=== PATIENT | male | born 1960 | race Two or more races ===

== ENCOUNTER 2021-02-04 22:14 | Inpatient (IN) | payer OTHER ==
[~2021-02-04] VITALS: Ht 170.2 cm; Wt 121.0 kg
[2021-02-04 23:16] LABS: Basophils # (auto) 0 10 ^3/uL (0-0.2); Basophils % (auto) 0.5 % (0.0-2.0); Eosinophils # (auto) 0 10 ^3/uL (0-0.8); Eosinophils % (auto) 0.1 % (0.0-7.0); Hematocrit 43.2 % (41.0-53.0); Hemoglobin 15.2 g/dL (13.5-17.5); Lymphocytes # (auto) 0.4 10 ^3/uL (0.4-5.4); Lymphocytes % (auto) 7.2 % (10.0-50.0); Mean Corpuscular Hemoglobin 31.3 pg (28.0-32.0); Mean Corpuscular Hgb Conc. 35.1 g/dL (32.0-36.0); Mean Corpuscular Volume 89.2 fL (80.0-100.0); Monocytes # (auto) 0.5 10 ^3/uL (0-1.3); Neutrophils # (auto) 4.6 10 ^3/uL (1.6-8.6); Neutrophils % (auto) 83.2 % (37.0-80.0); Nucleated Red Blood Cells % 0.1 %; Red Blood Cells 4.84 10^6/uL (4.5-5.90); Red Cell Distribution Width 13.8 % (11.8-14.3); White Blood Cell 5.5 10^3/uL (4.4-10.8)
[2021-02-04 23:34] LABS: Anion Gap 6 (5-15); Blood Urea Nitrogen 28 mg/dL (7-18); Calcium 8.1 mg/dL (8.5-10.1); Carbon Dioxide 22 mmol/L (21-32); Chloride 107 mmol/L (98-107); Glucose 98 mg/dL (74-106); Magnesium 2.9 mg/dL (1.6-2.6); Potassium 4.1 mmol/L (3.5-5.1); Sodium 135 mmol/L (136-145)
[2021-02-04 23:42] LABS: Alanine Aminotransferase 57 U/L (16-61); Alkaline Phosphatase 100 U/L (45-117); Aspartate Aminotransferase 75 U/L (15-37); BUN/Creatinine Ratio 23.1; Bilirubin, Total 0.8 mg/dL (0.2-1.0); CRP High Sensitivity 7.55 mg/dL (< 0.3); GFR African American 78 mL/min; GFR Non-African American 65 mL/min; Total Protein 7.6 g/dL (6.4-8.2)
[2021-02-05] VITALS (7 sets, daily range): BP systolic 94–108; BP diastolic 48–66
[2021-02-05] MEDS ORDERED: DexAMETHasone SOD PHOS 10MG/1ML VIAL INJ IV ONE (00:30)
[2021-02-05 01:50] LABS: Urine Amorphous Crystal FEW /hpf (None Seen); Urine Bacteria NONE SEEN /hpf (None Seen); Urine Blood Negative /uL (Negative); Urine Mucus FEW (None Seen); Urine Specific Gravity 1.024 (1.001-1.035); Urine WBC 4 /hpf (0 - 3)
[2021-02-05] MEDS ORDERED: NITROGLYCERIN 0.4 MG SL TAB SL PRN (03:30)
[2021-02-05] MEDS ORDERED: MORPHINE SULF INJ 2 MG/ML SYRINGE 1ML IV PRN (03:30)
[2021-02-05] MEDS ORDERED: ACETAMINOPHEN 500 MG TAB PO PRN (03:30)
[2021-02-05] MEDS ORDERED: ONDANSETRON HCL 4 MG/2 ML VIAL IV PRN (03:30)
[2021-02-05] MEDS ORDERED: DOCUSATE SOD 100 MG CAP PO PRN (03:30)
[2021-02-05] MEDS ORDERED: HYDROcodone-ACET 5/325MG TAB PO PRN (03:30)
[2021-02-05] MEDS: cefTRIAXone 1GM/50ML D5W 50 ML IV SCH (05:12)
[2021-02-05] MEDS ORDERED: guaiFENesin-DM 100/10mg/5ml SYR PO PRN (05:15)
[2021-02-05] MEDS: DOXYCYCLINE 100MG/250ML 250 ML IV SCH ×2 (05:40→21:11)
[2021-02-05] MEDS: SODIUM CHLOR 0.9% PF (SALINE LOCK) 10ML VIAL/SYR IV SCH ×3 (06:00→21:12)
[2021-02-05] MEDS: ALBUTEROL SULF HFA 90MCG INH 200DOSE IN PRN ×2 (09:12→20:55)
[2021-02-05] MEDS: BUDESONIDE (INHALATION) 180 MCG IH IN SCH ×2 (09:13→19:20)
[2021-02-05] MEDS ORDERED: HEPARIN SODIUM (PORCINE) 5000 UNITS/ML 1ML VIAL SC SCH (10:00)
[2021-02-05] MEDS: MULTIPLE VITAMIN TAB PO SCH (10:28)
[2021-02-05] MEDS: ASCORBIC ACID 1,000 MG TAB PO SCH (10:28)
[2021-02-05] MEDS: CHOLECALCIFEROL (VITD3) 2,000 UNIT CAP/TAB PO SCH (10:29)
[2021-02-05] MEDS: FAMOTIDINE (10MG/ML) 2ML VL IV SCH ×2 (10:29→21:12)
[2021-02-05] MEDS: ZINC SULFATE 220mg CAP or TAB PO SCH (10:29)
[2021-02-05] MEDS: DexAMETHasone SOD PHOS 10MG/1ML VIAL INJ IV SCH (10:35)
[2021-02-05] MEDS ORDERED: REMDESIVIR PER PHARMACY 0 ML IV SCH (10:45)
[2021-02-05] MEDS ORDERED: FUROSEMIDE 20 MG/2 ML VIAL IV ONE (11:00)
[2021-02-05] MEDS: IPRATROPIUM BROMIDE HFA AER IN SCH ×3 (11:21→23:02)
[2021-02-05] MEDS ORDERED: TOCILIZUMAB 400 MG in SODIUM CHL 0.9% 80 ML IV ONE (12:00)
[2021-02-05] MEDS ORDERED: IVERMECTIN 3 MG TAB PO ONE (13:30)
[2021-02-05] MEDS ORDERED: REMDESIVIR 200 MG in NS 210ml LOADING DOSE ADULT IV ONE (15:00)
[2021-02-05] MEDS: ENOXAPARIN SOD 60 MG/0.6 ML SYRINGE SC SCH (21:12)
[2021-02-06] VITALS (13 sets, daily range): BP systolic 90–112; BP diastolic 30–77
[2021-02-06] MEDS ORDERED: ALBUMIN 25% 100 ML IV ONE ×2 (01:40→01:45)
[2021-02-06] MEDS: IPRATROPIUM BROMIDE HFA AER IN SCH ×4 (06:00→22:00)
[2021-02-06] MEDS: ALBUTEROL SULF HFA 90MCG INH 200DOSE IN PRN ×2 (06:00→19:18)
[2021-02-06] MEDS: BUDESONIDE (INHALATION) 180 MCG IH IN SCH ×2 (06:01→19:17)
[2021-02-06] MEDS ORDERED: IVERMECTIN 3 MG TAB PO ONE (07:00)
[2021-02-06] MEDS ORDERED: TOCILIZUMAB 400 MG in SODIUM CHL 0.9% 80 ML IV ONE (08:00)
[2021-02-06] MEDS: cefTRIAXone 1GM/50ML D5W 50 ML IV SCH (08:28)
[2021-02-06] MEDS: FAMOTIDINE (10MG/ML) 2ML VL IV SCH ×2 (09:13→22:06)
[2021-02-06] MEDS: DexAMETHasone SOD PHOS 10MG/1ML VIAL INJ IV SCH (09:14)
[2021-02-06] MEDS: ASCORBIC ACID 1,000 MG TAB PO SCH (09:15)
[2021-02-06] MEDS: ENOXAPARIN SOD 60 MG/0.6 ML SYRINGE SC SCH ×2 (09:15→22:06)
[2021-02-06] MEDS: CHOLECALCIFEROL (VITD3) 2,000 UNIT CAP/TAB PO SCH (09:15)
[2021-02-06] MEDS: ZINC SULFATE 220mg CAP or TAB PO SCH (09:16)
[2021-02-06] MEDS: MULTIPLE VITAMIN TAB PO SCH (09:16)
[2021-02-06] MEDS: SODIUM CHLOR 0.9% PF (SALINE LOCK) 10ML VIAL/SYR IV SCH ×3 (09:16→22:06)
[2021-02-06] MEDS: DOXYCYCLINE 100MG/250ML 250 ML IV SCH ×2 (09:18→22:06)
[2021-02-06] MEDS: IVERMECTIN 3 MG TAB PO SCH (09:33)
[2021-02-06] MEDS ORDERED: FUROSEMIDE 20 MG/2 ML VIAL IV SCH (10:00)
[2021-02-06 10:15] LABS: Basophils # (auto) 0 10 ^3/uL (0-0.2); Basophils % (auto) 0.4 % (0.0-2.0); Eosinophils # (auto) 0 10 ^3/uL (0-0.8); Hematocrit 44.6 % (41.0-53.0); Hemoglobin 15.5 g/dL (13.5-17.5); Lymphocytes # (auto) 0.6 10 ^3/uL (0.4-5.4); Lymphocytes % (auto) 10.5 % (10.0-50.0); Mean Corpuscular Hemoglobin 31.3 pg (28.0-32.0); Mean Corpuscular Hgb Conc. 34.9 g/dL (32.0-36.0); Mean Corpuscular Volume 89.8 fL (80.0-100.0); Monocytes # (auto) 0.5 10 ^3/uL (0-1.3); Monocytes % (auto) 9.9 % (0.0-12.0); Neutrophils # (auto) 4.3 10 ^3/uL (1.6-8.6); Neutrophils % (auto) 79.2 % (37.0-80.0); Red Blood Cells 4.96 10^6/uL (4.5-5.90); Red Cell Distribution Width 13.9 % (11.8-14.3); White Blood Cell 5.4 10^3/uL (4.4-10.8)
[2021-02-06 10:33] LABS: Albumin 3.1 g/dL (3.4-5.0); Calcium 8.8 mg/dL (8.5-10.1)
[2021-02-06 10:38] LABS: Bilirubin, Total 0.8 mg/dL (0.2-1.0); Total Protein 7.7 g/dL (6.4-8.2)
[2021-02-06 11:30] LABS: BUN/Creatinine Ratio 30.2
[2021-02-06] MEDS: REMDESIVIR 100mg 100 MG in SODIUM CHL 0.9% 230 ML IV SCH (15:45)
[2021-02-07] VITALS (11 sets, daily range): BP systolic 103–175; BP diastolic 50–78
[2021-02-07] MEDS: ALBUTEROL SULF HFA 90MCG INH 200DOSE IN PRN ×2 (06:00→19:11)
[2021-02-07] MEDS: IPRATROPIUM BROMIDE HFA AER IN SCH ×4 (06:00→22:00)
[2021-02-07] MEDS: SODIUM CHLOR 0.9% PF (SALINE LOCK) 10ML VIAL/SYR IV SCH ×3 (06:55→22:29)
[2021-02-07] MEDS: cefTRIAXone 1GM/50ML D5W 50 ML IV SCH (09:25)
[2021-02-07] MEDS: IVERMECTIN 3 MG TAB PO SCH (10:00)
[2021-02-07] MEDS: BUDESONIDE (INHALATION) 180 MCG IH IN SCH ×2 (10:00→19:11)
[2021-02-07] MEDS: DOCUSATE SOD 100 MG CAP PO SCH ×2 (10:00→20:29)
[2021-02-07] MEDS: DexAMETHasone SOD PHOS 10MG/1ML VIAL INJ IV SCH (10:26)
[2021-02-07] MEDS: CHOLECALCIFEROL (VITD3) 2,000 UNIT CAP/TAB PO SCH (10:26)
[2021-02-07] MEDS: ASCORBIC ACID 1,000 MG TAB PO SCH (10:26)
[2021-02-07] MEDS: FAMOTIDINE (10MG/ML) 2ML VL IV SCH ×2 (10:26→22:29)
[2021-02-07] MEDS: MULTIPLE VITAMIN TAB PO SCH (10:27)
[2021-02-07] MEDS: ZINC SULFATE 220mg CAP or TAB PO SCH (10:28)
[2021-02-07] MEDS: ENOXAPARIN SOD 60 MG/0.6 ML SYRINGE SC SCH ×2 (10:29→22:30)
[2021-02-07] MEDS: FUROSEMIDE 40 MG/4 ML VIAL IV SCH (10:29)
[2021-02-07] MEDS: DOXYCYCLINE 100MG/250ML 250 ML IV SCH ×2 (10:29→22:29)
[2021-02-07] MEDS: REMDESIVIR 100mg 100 MG in SODIUM CHL 0.9% 230 ML IV SCH (15:06)
[2021-02-08] VITALS (14 sets, daily range): BP systolic 92–149; BP diastolic 62–78
[2021-02-08] MEDS: BUDESONIDE (INHALATION) 180 MCG IH IN SCH (05:59)
[2021-02-08] MEDS: IPRATROPIUM BROMIDE HFA AER IN SCH (05:59)
[2021-02-08] MEDS: ALBUTEROL SULF HFA 90MCG INH 200DOSE IN PRN (05:59)
[2021-02-08] MEDS: SODIUM CHLOR 0.9% PF (SALINE LOCK) 10ML VIAL/SYR IV SCH ×3 (06:00→21:28)
[2021-02-08 06:21] LABS: Potassium 3.9 mmol/L (3.5-5.1)
[2021-02-08 06:30] LABS: BUN/Creatinine Ratio 28.2; Calcium 8.5 mg/dL (8.5-10.1)
[2021-02-08 06:32] LABS: Bilirubin, Total 1.1 mg/dL (0.2-1.0); Total Protein 7.4 g/dL (6.4-8.2)
[2021-02-08] MEDS: cefTRIAXone 1GM/50ML D5W 50 ML IV SCH (09:08)
[2021-02-08] MEDS: ASCORBIC ACID 1,000 MG TAB PO SCH (10:00)
[2021-02-08] MEDS: DOCUSATE SOD 100 MG CAP PO SCH ×2 (10:00→21:28)
[2021-02-08] MEDS: CHOLECALCIFEROL (VITD3) 2,000 UNIT CAP/TAB PO SCH (10:00)
[2021-02-08] MEDS: DOXYCYCLINE 100MG/250ML 250 ML IV SCH ×2 (10:00→21:28)
[2021-02-08] MEDS: MULTIPLE VITAMIN TAB PO SCH (11:07)
[2021-02-08] MEDS: FAMOTIDINE (10MG/ML) 2ML VL IV SCH ×2 (11:08→21:29)
[2021-02-08] MEDS: DexAMETHasone SOD PHOS 10MG/1ML VIAL INJ IV SCH (11:08)
[2021-02-08] MEDS: ZINC SULFATE 220mg CAP or TAB PO SCH (11:08)
[2021-02-08] MEDS: IVERMECTIN 3 MG TAB PO SCH (11:08)
[2021-02-08] MEDS: ENOXAPARIN SOD 60 MG/0.6 ML SYRINGE SC SCH ×2 (11:08→21:28)
[2021-02-08] MEDS: FUROSEMIDE 40 MG/4 ML VIAL IV SCH (11:09)
[2021-02-08] MEDS: ACETYLCYSTEINE 10 %(100MG/ML) SOL 4ML NEB SCH ×2 (12:30→19:31)
[2021-02-08] MEDS: REMDESIVIR 100mg 100 MG in SODIUM CHL 0.9% 230 ML IV SCH (15:00)
[2021-02-08] MEDS: IPRATROPIUM BROM 0.5 MG/2.5ML INH SOL NEB SCH (19:31)
[2021-02-08] MEDS: ALBUTEROL SULF 2.5 MG/0.5ML(0.5%) NEB SOLN NEB SCH (19:31)
[2021-02-09] VITALS (15 sets, daily range): BP systolic 92–151; BP diastolic 56–82
[2021-02-09] MEDS: ACETYLCYSTEINE 10 %(100MG/ML) SOL 4ML NEB SCH ×4 (00:41→18:33)
[2021-02-09] MEDS: IPRATROPIUM BROM 0.5 MG/2.5ML INH SOL NEB SCH ×4 (00:41→18:33)
[2021-02-09] MEDS: ALBUTEROL SULF 2.5 MG/0.5ML(0.5%) NEB SOLN NEB SCH ×4 (00:41→18:33)
[2021-02-09 05:29] LABS: Basophils # (auto) 0.1 10 ^3/uL (0-0.2); Basophils % (auto) 0.7 % (0.0-2.0); Eosinophils # (auto) 0 10 ^3/uL (0-0.8); Eosinophils % (auto) 0.1 % (0.0-7.0); Hematocrit 49.7 % (41.0-53.0); Lymphocytes # (auto) 0.9 10 ^3/uL (0.4-5.4); Lymphocytes % (auto) 8.6 % (10.0-50.0); Mean Corpuscular Hemoglobin 31.3 pg (28.0-32.0); Mean Corpuscular Hgb Conc. 34.2 g/dL (32.0-36.0); Mean Corpuscular Volume 91.5 fL (80.0-100.0); Monocytes # (auto) 0.6 10 ^3/uL (0-1.3); Monocytes % (auto) 5.2 % (0.0-12.0); Neutrophils # (auto) 9.1 10 ^3/uL (1.6-8.6); Neutrophils % (auto) 85.4 % (37.0-80.0); Nucleated Red Blood Cells % 0.1 %; Red Blood Cells 5.43 10^6/uL (4.5-5.90); Red Cell Distribution Width 14.1 % (11.8-14.3); White Blood Cell 10.6 10^3/uL (4.4-10.8)
[2021-02-09 05:41] LABS: Albumin 3.3 g/dL (3.4-5.0)
[2021-02-09 05:51] LABS: BUN/Creatinine Ratio 29.1; Bilirubin, Total 1.4 mg/dL (0.2-1.0); CRP High Sensitivity 1.03 mg/dL (< 0.3); Total Protein 7.8 g/dL (6.4-8.2)
[2021-02-09] MEDS: SODIUM CHLOR 0.9% PF (SALINE LOCK) 10ML VIAL/SYR IV SCH ×3 (06:00→19:53)
[2021-02-09] MEDS: cefTRIAXone 1GM/50ML D5W 50 ML IV SCH (09:51)
[2021-02-09] MEDS: FUROSEMIDE 40 MG/4 ML VIAL IV SCH (09:52)
[2021-02-09] MEDS: ENOXAPARIN SOD 60 MG/0.6 ML SYRINGE SC SCH ×2 (09:52→19:53)
[2021-02-09] MEDS: DexAMETHasone SOD PHOS 10MG/1ML VIAL INJ IV SCH (09:52)
[2021-02-09] MEDS: MULTIPLE VITAMIN TAB PO SCH (09:53)
[2021-02-09] MEDS: ASCORBIC ACID 1,000 MG TAB PO SCH (09:54)
[2021-02-09] MEDS: DOCUSATE SOD 100 MG CAP PO SCH ×2 (09:54→19:53)
[2021-02-09] MEDS: ZINC SULFATE 220mg CAP or TAB PO SCH (09:54)
[2021-02-09] MEDS: IVERMECTIN 3 MG TAB PO SCH (09:55)
[2021-02-09] MEDS: CHOLECALCIFEROL (VITD3) 2,000 UNIT CAP/TAB PO SCH (09:55)
[2021-02-09] MEDS: FAMOTIDINE (10MG/ML) 2ML VL IV SCH ×2 (09:56→19:53)
[2021-02-09] MEDS: DOXYCYCLINE 100MG/250ML 250 ML IV SCH ×2 (09:57→21:45)
[2021-02-09] MEDS: REMDESIVIR 100mg 100 MG in SODIUM CHL 0.9% 230 ML IV SCH (14:43)
[2021-02-09] MEDS ORDERED: LORazepam 2MG/ML-1ML VIAL IV PRN (15:15)
[2021-02-10] VITALS (19 sets, daily range): BP systolic 117–152; BP diastolic 67–83
[2021-02-10] MEDS: ALBUTEROL SULF 2.5 MG/0.5ML(0.5%) NEB SOLN NEB SCH ×4 (00:09→18:19)
[2021-02-10] MEDS: IPRATROPIUM BROM 0.5 MG/2.5ML INH SOL NEB SCH ×4 (00:09→18:19)
[2021-02-10] MEDS: ACETYLCYSTEINE 10 %(100MG/ML) SOL 4ML NEB SCH ×4 (00:10→18:19)
[2021-02-10 06:09] LABS: Basophils # (auto) 0 10 ^3/uL (0-0.2); Basophils % (auto) 0.2 % (0.0-2.0); Eosinophils # (auto) 0 10 ^3/uL (0-0.8); Eosinophils % (auto) 0.3 % (0.0-7.0); Hematocrit 50.2 % (41.0-53.0); Hemoglobin 17.3 g/dL (13.5-17.5); Lymphocytes # (auto) 0.7 10 ^3/uL (0.4-5.4); Lymphocytes % (auto) 4.8 % (10.0-50.0); Mean Corpuscular Hemoglobin 31.4 pg (28.0-32.0); Mean Corpuscular Hgb Conc. 34.4 g/dL (32.0-36.0); Mean Corpuscular Volume 91.5 fL (80.0-100.0); Monocytes # (auto) 0.7 10 ^3/uL (0-1.3); Monocytes % (auto) 4.6 % (0.0-12.0); Neutrophils # (auto) 13.5 10 ^3/uL (1.6-8.6); Neutrophils % (auto) 90.1 % (37.0-80.0); Nucleated Red Blood Cells % 0.1 %; Red Blood Cells 5.49 10^6/uL (4.5-5.90)
[2021-02-10 06:17] LABS: Potassium 3.9 mmol/L (3.5-5.1)
[2021-02-10] MEDS: SODIUM CHLOR 0.9% PF (SALINE LOCK) 10ML VIAL/SYR IV SCH ×3 (06:21→20:20)
[2021-02-10 06:22] LABS: BUN/Creatinine Ratio 29.6; Calcium 9.1 mg/dL (8.5-10.1)
[2021-02-10] MEDS: cefTRIAXone 1GM/50ML D5W 50 ML IV SCH (10:03)
[2021-02-10] MEDS: ENOXAPARIN SOD 60 MG/0.6 ML SYRINGE SC SCH (10:04)
[2021-02-10] MEDS: FAMOTIDINE (10MG/ML) 2ML VL IV SCH ×2 (10:04→20:20)
[2021-02-10] MEDS: FUROSEMIDE 40 MG/4 ML VIAL IV SCH (10:06)
[2021-02-10] MEDS: DOCUSATE SOD 100 MG CAP PO SCH ×2 (10:06→20:20)
[2021-02-10] MEDS: ZINC SULFATE 220mg CAP or TAB PO SCH (10:07)
[2021-02-10] MEDS: MULTIPLE VITAMIN TAB PO SCH (10:07)
[2021-02-10] MEDS: ASCORBIC ACID 1,000 MG TAB PO SCH (10:07)
[2021-02-10] MEDS: CHOLECALCIFEROL (VITD3) 2,000 UNIT CAP/TAB PO SCH (10:08)
[2021-02-10] MEDS: DexAMETHasone SOD PHOS 10MG/1ML VIAL INJ IV SCH (10:09)
[2021-02-10 12:17] LABS: INR 1.12 (0.9-1.15); Partial Thromboplastin Time 29.1 sec (23.6-33.0)
[2021-02-10] MEDS ORDERED: MORPHINE SULF INJ 2 MG/ML SYRINGE 1ML IV ONE (12:30)
[2021-02-10] MEDS: Ensure HIGH Protein Chocolate 8oz Bottle PO SCH ×2 (12:46→18:00)
[2021-02-10] MEDS ORDERED: LIDOCAINE 1% (LOCAL ANESTH.) PF 5ml SDV ID ONE (15:00)
[2021-02-10] MEDS ORDERED: MORPHINE SULF INJ 2 MG/ML SYRINGE 1ML IV PRN (17:45)
[2021-02-10] MEDS ORDERED: CLINIMIX PER PHARMACY 0 ML IV SCH (19:15)
[2021-02-10] MEDS ORDERED: AMINO ACID INFUSION IN D10W 1,000 ML IV NR (20:00)
[2021-02-10] MEDS: ENOXAPARIN SOD 40 MG/0.4 ML SYRINGE SC SCH (20:20)
[2021-02-10 20:56] LABS: Albumin 3.3 g/dL (3.4-5.0); Calcium 8.9 mg/dL (8.5-10.1); Potassium 4.2 mmol/L (3.5-5.1)
[2021-02-10 20:59] LABS: Phosphorus 3.7 mg/dL (2.5-4.90); Total Protein 7.6 g/dL (6.4-8.2)
[2021-02-11] VITALS (36 sets, daily range): BP systolic 115–147; BP diastolic 55–86
[2021-02-11] MEDS ORDERED: DEXTROSE (50%) 50ML SYRG IV SCH
[2021-02-11] MEDS: ALBUTEROL SULF 2.5 MG/0.5ML(0.5%) NEB SOLN NEB SCH ×5 (00:11→18:14)
[2021-02-11] MEDS: IPRATROPIUM BROM 0.5 MG/2.5ML INH SOL NEB SCH ×5 (00:11→18:14)
[2021-02-11] MEDS: ACETYLCYSTEINE 10 %(100MG/ML) SOL 4ML NEB SCH ×5 (00:12→18:21)
[2021-02-11] MEDS: InsuLIN REG 1unit/0.01ml Soln (100units/ml) SC SCH ×4 (06:00→18:00)
[2021-02-11 06:02] LABS: Basophils # (auto) 0.1 10 ^3/uL (0-0.2); Basophils % (auto) 0.4 % (0.0-2.0); Eosinophils # (auto) 0.2 10 ^3/uL (0-0.8); Eosinophils % (auto) 1.1 % (0.0-7.0); Hematocrit 50.2 % (41.0-53.0); Hemoglobin 17.2 g/dL (13.5-17.5); Lymphocytes # (auto) 0.5 10 ^3/uL (0.4-5.4); Lymphocytes % (auto) 3.2 % (10.0-50.0); Mean Corpuscular Hemoglobin 31.5 pg (28.0-32.0); Mean Corpuscular Hgb Conc. 34.2 g/dL (32.0-36.0); Mean Corpuscular Volume 92.1 fL (80.0-100.0); Monocytes # (auto) 0.6 10 ^3/uL (0-1.3); Monocytes % (auto) 3.8 % (0.0-12.0); Neutrophils # (auto) 13.6 10 ^3/uL (1.6-8.6); Neutrophils % (auto) 91.5 % (37.0-80.0); Nucleated Red Blood Cells % 0.1 %; Red Blood Cells 5.45 10^6/uL (4.5-5.90); Red Cell Distribution Width 14.1 % (11.8-14.3); White Blood Cell 14.9 10^3/uL (4.4-10.8)
[2021-02-11] MEDS: ACCU-CHEK COMFORT CURVE STRIP VI SCH ×4 (06:21→18:20)
[2021-02-11] MEDS: SODIUM CHLOR 0.9% PF (SALINE LOCK) 10ML VIAL/SYR IV SCH ×3 (06:21→20:39)
[2021-02-11 06:26] LABS: Potassium 4.1 mmol/L (3.5-5.1)
[2021-02-11 06:38] LABS: Albumin 3.1 g/dL (3.4-5.0); BUN/Creatinine Ratio 32.7; Bilirubin, Total 1.1 mg/dL (0.2-1.0); Calcium 9.2 mg/dL (8.5-10.1); Phosphorus 3.4 mg/dL (2.5-4.90); Pre Albumin 30.1 mg/dL (20.0-40.0); Total Protein 7.6 g/dL (6.4-8.2)
[2021-02-11] MEDS: Ensure HIGH Protein Chocolate 8oz Bottle PO SCH ×3 (08:00→18:45)
[2021-02-11] MEDS ORDERED: MULTIPLE VITAMIN TAB PO SCH (10:00)
[2021-02-11] MEDS: cefTRIAXone 1GM/50ML D5W 50 ML IV SCH (10:07)
[2021-02-11] MEDS: DexAMETHasone SOD PHOS 10MG/1ML VIAL INJ IV SCH (10:37)
[2021-02-11] MEDS: DOCUSATE SOD 100 MG CAP PO SCH ×2 (10:38→20:41)
[2021-02-11] MEDS: CHOLECALCIFEROL (VITD3) 2,000 UNIT CAP/TAB PO SCH (10:38)
[2021-02-11] MEDS: ASCORBIC ACID 1,000 MG TAB PO SCH (10:38)
[2021-02-11] MEDS: FUROSEMIDE 40 MG/4 ML VIAL IV SCH (10:39)
[2021-02-11] MEDS: ENOXAPARIN SOD 40 MG/0.4 ML SYRINGE SC SCH ×2 (10:39→20:39)
[2021-02-11] MEDS: FAMOTIDINE (10MG/ML) 2ML VL IV SCH ×2 (10:39→20:39)
[2021-02-11] MEDS: ZINC SULFATE 220mg CAP or TAB PO SCH (10:40)
[2021-02-11] MEDS ORDERED: PPN PER PHARMACY 500 ML IV SCH (11:00)
[2021-02-11] MEDS ORDERED: TPN PER PHARMACY 0 ML IV SCH ×2 (12:45→19:15)
[2021-02-11] MEDS ORDERED: METOPROLOL TARTRATE 1MG/1ML-5ML VIAL IV ONE ×2 (18:30→18:34)
[2021-02-11] MEDS ORDERED: PPN PER PHARMACY IV NR ×8 (20:00)
[2021-02-12] VITALS (34 sets, daily range): BP systolic 109–138; BP diastolic 64–88
[2021-02-12] MEDS: ALBUTEROL SULF 2.5 MG/0.5ML(0.5%) NEB SOLN NEB SCH ×4 (00:52→18:29)
[2021-02-12] MEDS: IPRATROPIUM BROM 0.5 MG/2.5ML INH SOL NEB SCH ×4 (00:52→18:28)
[2021-02-12] MEDS: ACETYLCYSTEINE 10 %(100MG/ML) SOL 4ML NEB SCH ×4 (00:53→18:29)
[2021-02-12] MEDS: SODIUM CHLOR 0.9% PF (SALINE LOCK) 10ML VIAL/SYR IV SCH ×3 (06:00→22:14)
[2021-02-12] MEDS: ACCU-CHEK COMFORT CURVE STRIP VI SCH ×4 (06:13→18:05)
[2021-02-12] MEDS: InsuLIN REG 1unit/0.01ml Soln (100units/ml) SC SCH ×4 (06:20→18:38)
[2021-02-12 06:39] LABS: Basophils # (auto) 0.1 10 ^3/uL (0-0.2); Eosinophils # (auto) 0.3 10 ^3/uL (0-0.8); Lymphocytes # (auto) 0.5 10 ^3/uL (0.4-5.4); Monocytes # (auto) 0.5 10 ^3/uL (0-1.3)
[2021-02-12 06:47] LABS: Basophils % (auto) 0.5 % (0.0-2.0); Eosinophils % (auto) 1.8 % (0.0-7.0); Hemoglobin 17.7 g/dL (13.5-17.5); Lymphocytes % (auto) 2.6 % (10.0-50.0); Mean Corpuscular Hemoglobin 30.7 pg (28.0-32.0); Mean Corpuscular Hgb Conc. 33.4 g/dL (32.0-36.0); Monocytes % (auto) 2.7 % (0.0-12.0); Neutrophils # (auto) 16.6 10 ^3/uL (1.6-8.6); Neutrophils % (auto) 92.4 % (37.0-80.0); Red Blood Cells 5.76 10^6/uL (4.5-5.90); Red Cell Distribution Width 14.3 % (11.8-14.3)
[2021-02-12 06:56] LABS: Potassium 4.1 mmol/L (3.5-5.1)
[2021-02-12 07:04] LABS: Albumin 3.1 g/dL (3.4-5.0); BUN/Creatinine Ratio 34.6; Calcium 8.6 mg/dL (8.5-10.1); Magnesium 2.8 mg/dL (1.6-2.6)
[2021-02-12 07:06] LABS: Bilirubin, Total 0.8 mg/dL (0.2-1.0); Phosphorus 3.6 mg/dL (2.5-4.90); Total Protein 7.1 g/dL (6.4-8.2)
[2021-02-12] MEDS: Ensure HIGH Protein Chocolate 8oz Bottle PO SCH ×3 (08:00→18:00)
[2021-02-12] MEDS: cefTRIAXone 1GM/50ML D5W 50 ML IV SCH (09:31)
[2021-02-12] MEDS: DexAMETHasone SOD PHOS 10MG/1ML VIAL INJ IV SCH (09:31)
[2021-02-12] MEDS: FAMOTIDINE (10MG/ML) 2ML VL IV SCH ×2 (09:31→22:14)
[2021-02-12] MEDS: FUROSEMIDE 40 MG/4 ML VIAL IV SCH (09:32)
[2021-02-12] MEDS: ZINC SULFATE 220mg CAP or TAB PO SCH ×2 (09:32→10:00)
[2021-02-12] MEDS: ASCORBIC ACID 1,000 MG TAB PO SCH ×2 (09:32→10:00)
[2021-02-12] MEDS: DOCUSATE SOD 100 MG CAP PO SCH ×3 (09:33→22:00)
[2021-02-12] MEDS: ENOXAPARIN SOD 40 MG/0.4 ML SYRINGE SC SCH ×2 (09:33→22:15)
[2021-02-12] MEDS: CHOLECALCIFEROL (VITD3) 2,000 UNIT CAP/TAB PO SCH ×2 (09:33→10:00)
[2021-02-12] MEDS ORDERED: PIPERACILLIN-TAZOB 3.375GM 100 ML IV ONE (10:15)
[2021-02-12] MEDS: PIPERACILLIN-TAZOB 3.375GM 100 ML IV SCH (18:20)
[2021-02-12] MEDS ORDERED: TPN PER PHARMACY IV NR ×10 (20:00)
[2021-02-13] VITALS (55 sets, daily range): BP systolic 56–222; BP diastolic 22–210
[2021-02-13] MEDS: ACETYLCYSTEINE 10 %(100MG/ML) SOL 4ML NEB SCH ×4 (00:27→22:35)
[2021-02-13] MEDS: IPRATROPIUM BROM 0.5 MG/2.5ML INH SOL NEB SCH ×4 (00:27→22:35)
[2021-02-13] MEDS: ALBUTEROL SULF 2.5 MG/0.5ML(0.5%) NEB SOLN NEB SCH ×4 (00:27→22:34)
[2021-02-13] MEDS: ACCU-CHEK COMFORT CURVE STRIP VI SCH ×4 (00:59→18:58)
[2021-02-13] MEDS: PIPERACILLIN-TAZOB 3.375GM 100 ML IV SCH ×3 (02:00→19:05)
[2021-02-13] MEDS: InsuLIN REG 1unit/0.01ml Soln (100units/ml) SC SCH ×4 (06:00→19:05)
[2021-02-13 06:12] LABS: Basophils # (auto) 0.1 10 ^3/uL (0-0.2); Eosinophils # (auto) 0.4 10 ^3/uL (0-0.8); Eosinophils % (auto) 2.2 % (0.0-7.0)
[2021-02-13 06:16] LABS: Basophils % (auto) 0.4 % (0.0-2.0); Hematocrit 55.6 % (41.0-53.0); Hemoglobin 18.7 g/dL (13.5-17.5); Lymphocytes # (auto) 0.3 10 ^3/uL (0.4-5.4); Lymphocytes % (auto) 2.1 % (10.0-50.0); Mean Corpuscular Hemoglobin 30.9 pg (28.0-32.0); Mean Corpuscular Hgb Conc. 33.5 g/dL (32.0-36.0); Monocytes # (auto) 0.4 10 ^3/uL (0-1.3); Monocytes % (auto) 2.2 % (0.0-12.0); Neutrophils # (auto) 15.8 10 ^3/uL (1.6-8.6); Neutrophils % (auto) 93.1 % (37.0-80.0); Nucleated Red Blood Cells % 0.1 %; Red Blood Cells 6.04 10^6/uL (4.5-5.90); Red Cell Distribution Width 14.3 % (11.8-14.3)
[2021-02-13 06:39] LABS: Albumin 3.3 g/dL (3.4-5.0); Calcium 9.2 mg/dL (8.5-10.1); Magnesium 3.2 mg/dL (1.6-2.6); Potassium 3.6 mmol/L (3.5-5.1)
[2021-02-13] MEDS: SODIUM CHLOR 0.9% PF (SALINE LOCK) 10ML VIAL/SYR IV SCH ×3 (06:39→23:21)
[2021-02-13 06:43] LABS: BUN/Creatinine Ratio 30.2; Bilirubin, Total 1.1 mg/dL (0.2-1.0); Phosphorus 3.5 mg/dL (2.5-4.90); Total Protein 7.9 g/dL (6.4-8.2)
[2021-02-13] MEDS: Ensure HIGH Protein Chocolate 8oz Bottle PO SCH ×3 (08:00→18:00)
[2021-02-13] MEDS ORDERED: ROCURONIUM 10MG/ML 10ML VIAL IV ONE (11:00)
[2021-02-13] MEDS ORDERED: PROPOFOL 100 ML IV SCH (11:00)
[2021-02-13] MEDS ORDERED: ETOMIDATE (2MG/ML) 20ML VIAL IV ONE (11:00)
[2021-02-13] MEDS: ZINC SULFATE 220mg CAP or TAB PO SCH (11:17)
[2021-02-13] MEDS: FAMOTIDINE (10MG/ML) 2ML VL IV SCH ×2 (11:17→23:21)
[2021-02-13] MEDS: FUROSEMIDE 40 MG/4 ML VIAL IV SCH (11:18)
[2021-02-13] MEDS: ENOXAPARIN SOD 40 MG/0.4 ML SYRINGE SC SCH ×2 (11:18→23:22)
[2021-02-13] MEDS: CHOLECALCIFEROL (VITD3) 2,000 UNIT CAP/TAB PO SCH (11:18)
[2021-02-13] MEDS: ASCORBIC ACID 1,000 MG TAB PO SCH (11:18)
[2021-02-13] MEDS: DOCUSATE SOD 100 MG CAP PO SCH ×2 (11:19→22:00)
[2021-02-13] MEDS: DexAMETHasone SOD PHOS 10MG/1ML VIAL INJ IV SCH (11:20)
[2021-02-13] MEDS ORDERED: fentaNYL Drip 2500mCg/250mlNS 250 ML IV ONE (12:44)
[2021-02-13] MEDS ORDERED: MIDAZOLAM DRIP 50 mg/50mL 50 ML IV ONE (12:45)
[2021-02-13] MEDS: fentaNYL Drip 2500mCg/250mlNS 250 ML IV SCH (12:50)
[2021-02-13] MEDS: MIDAZOLAM DRIP 50 mg/50mL 50 ML IV SCH ×2 (12:55→21:54)
[2021-02-13] MEDS ORDERED: PROPOFOL 100 ML IV ONE (12:58)
[2021-02-13] MEDS ORDERED: ATRACURIUM BESYLATE 1,000 MG in D5W 5% 150 ML IV SCH (13:15)
[2021-02-13] MEDS ORDERED: PHENYLEPHRINE IV 250 ML IV ONE ×3 (14:22→19:56)
[2021-02-13] MEDS ORDERED: VANCOMYCIN 1GM/250ML 250 ML IV ONE (14:45)
[2021-02-13] MEDS ORDERED: ACETAMINOPHEN 650 MG RECT SUPP PR PRN ×2 (17:45→19:45)
[2021-02-13] MEDS ORDERED: ACETAMINOPHEN IV 1000 MG/100ML (10MG/ML) IV ONE (17:45)
[2021-02-13] MEDS ORDERED: NOREPINEPHRINE 8 MG/250ML KIT 250 ML IV ONE (17:53)
[2021-02-13] MEDS: VASOPRESSIN 50 UNITS in D5W 5% 247.5 ML IV SCH (18:00)
[2021-02-13] MEDS ORDERED: ACETAMINOPHEN IV 1000 MG/100ML (10MG/ML) IV PRN (19:15)
[2021-02-13] MEDS ORDERED: TPN PER PHARMACY IV NR ×10 (20:00)
[2021-02-13] MEDS: PHENYLEPHRINE IV 250 ML IV SCH ×2 (20:15→22:07)
[2021-02-13] MEDS ORDERED: NOREPINEPHRINE 8 MG/250ML KIT 250 ML IV SCH (21:45)
[2021-02-13] MEDS ORDERED: EPINEPHrine HCL 250 ML IV SCH (23:00)
[2021-02-13] MEDS ORDERED: DOPamine 1600MCG/ML D5W 250 ML IV SCH (23:00)
[2021-02-13] MEDS ORDERED: SODIUM BICARBONATE 8.4 % INJ 50ML VIAL IV ONE (23:00)
[2021-02-14] VITALS (59 sets, daily range): BP systolic 63–156; BP diastolic 29–74
[2021-02-14] MEDS: ACCU-CHEK COMFORT CURVE STRIP VI SCH ×2 (00:09→06:00)
[2021-02-14] MEDS: PHENYLEPHRINE IV 250 ML IV SCH ×4 (00:11→08:50)
[2021-02-14] MEDS: PIPERACILLIN-TAZOB 3.375GM 100 ML IV SCH ×2 (01:42→10:43)
[2021-02-14] MEDS: InsuLIN REG 1unit/0.01ml Soln (100units/ml) SC SCH ×2 (06:00)
[2021-02-14] MEDS: ALBUTEROL SULF 2.5 MG/0.5ML(0.5%) NEB SOLN NEB SCH ×2 (06:18→13:59)
[2021-02-14] MEDS: ACETYLCYSTEINE 10 %(100MG/ML) SOL 4ML NEB SCH ×2 (06:18→13:59)
[2021-02-14] MEDS: IPRATROPIUM BROM 0.5 MG/2.5ML INH SOL NEB SCH ×2 (06:18→13:59)
[2021-02-14 06:48] LABS: Albumin 2.5 g/dL (3.4-5.0); Calcium 7.5 mg/dL (8.5-10.1); Magnesium 2.7 mg/dL (1.6-2.6); Potassium 4.9 mmol/L (3.5-5.1)
[2021-02-14 06:57] LABS: Phosphorus 8.3 mg/dL (2.5-4.90); Total Protein 6.5 g/dL (6.4-8.2)
[2021-02-14] MEDS: Ensure HIGH Protein Chocolate 8oz Bottle PO SCH (08:00)
[2021-02-14] MEDS: fentaNYL Drip 2500mCg/250mlNS 250 ML IV SCH (08:03)
[2021-02-14] MEDS: VASOPRESSIN 50 UNITS in D5W 5% 247.5 ML IV SCH (08:50)
[2021-02-14] MEDS: SODIUM CHLOR 0.9% PF (SALINE LOCK) 10ML VIAL/SYR IV SCH (09:00)
[2021-02-14] MEDS ORDERED: EPINEPHrine HCL 1 MG/10 ML SYRG IV ONE (09:13)
[2021-02-14] MEDS ORDERED: ATROPINE SULF 1 MG/10ml SYR IV ONE (09:13)
[2021-02-14] MEDS ORDERED: SODIUM BICARBONATE 8.4% INJ 50ML SYRINGE IV ONE (09:13)
[2021-02-14] MEDS: CHOLECALCIFEROL (VITD3) 2,000 UNIT CAP/TAB PO SCH (10:00)
[2021-02-14] MEDS: DOCUSATE SOD 100 MG CAP PO SCH (10:00)
[2021-02-14] MEDS: ASCORBIC ACID 1,000 MG TAB PO SCH (10:00)
[2021-02-14] MEDS: ZINC SULFATE 220mg CAP or TAB PO SCH (10:00)
[2021-02-14] MEDS: MIDAZOLAM DRIP 50 mg/50mL 50 ML IV SCH (10:01)
[2021-02-14] MEDS: DexAMETHasone SOD PHOS 10MG/1ML VIAL INJ IV SCH (10:42)
[2021-02-14] MEDS: FUROSEMIDE 40 MG/4 ML VIAL IV SCH (10:43)
[2021-02-14] MEDS: FAMOTIDINE (10MG/ML) 2ML VL IV SCH (10:43)
[2021-02-14] MEDS: ENOXAPARIN SOD 40 MG/0.4 ML SYRINGE SC SCH (10:45)
[2021-02-14] MEDS ORDERED: TPN PER PHARMACY IV NR ×10 (10:45)
[2021-02-14] MEDS ORDERED: PHENYLEPHRINE INJ 80 MG in SODIUM CHL 0.9% 242 ML IV SCH (13:15)
[2021-02-14] MEDS ORDERED: AMINO ACID INFUSION IN D10W 1,000 ML IV NR ×2 (14:01→20:00)
[2021-02-14] MEDS ORDERED: EPINEPHrine HCL INJECTION 16 MG in D5W 5% 234 ML IV SCH (14:15)
[2021-02-14] MEDS ORDERED: NOREPINEPHRINE BITARTRATE 32 MG in SODIUM CHL 0.9% 218 ML IV SCH (14:15)
[2021-02-14] MEDS ORDERED: NOREPINEPHRINE 8 MG/250ML KIT 250 ML IV ONE (15:24)
== END 2021-02-14 20:38 | DRG 871 ==
LOC: ER 22:14 → EDBD 22:14 → TELE-EAST 02-05 03:40 → DOU IN ICU 02-05 23:03
PROVIDERS: ADMIT Nurse Practitioner Family; ATTEND Internal Medicine Pulmonary Disease
PROC: XW033E5 Introduction of Remdesivir Anti-infective into Peripheral Vein, Percutaneous Approach, New Technology Group 5 (ICD-10-PCS; 2021-02-05)
PROC: XW033H5 Introduction of Tocilizumab into Peripheral Vein, Percutaneous Approach, New Technology Group 5 (ICD-10-PCS; 2021-02-05)
PROC: 5A09557 Assistance with Respiratory Ventilation, Greater than 96 Consecutive Hours, Continuous Positive Airway Pressure (ICD-10-PCS; principal; 2021-02-08)
PROC: 02HV33Z Insertion of Infusion Device into Superior Vena Cava, Percutaneous Approach (ICD-10-PCS; 2021-02-10)
PROC: 0BH17EZ Insertion of Endotracheal Airway into Trachea, Via Natural or Artificial Opening (ICD-10-PCS; 2021-02-13)
PROC: 5A1935Z Respiratory Ventilation, Less than 24 Consecutive Hours (ICD-10-PCS; 2021-02-13)
PROC: 03HY32Z Insertion of Monitoring Device into Upper Artery, Percutaneous Approach (ICD-10-PCS; 2021-02-13)
PROC: 4A133B1 Monitoring of Arterial Pressure, Peripheral, Percutaneous Approach (ICD-10-PCS; 2021-02-13)
PROC: 4A133J1 Monitoring of Arterial Pulse, Peripheral, Percutaneous Approach (ICD-10-PCS; 2021-02-13)
PROC: 5A12012 Performance of Cardiac Output, Single, Manual (ICD-10-PCS; 2021-02-14)
DX: A41.89 Other specified sepsis (principal); J12.82 Pneumonia due to coronavirus disease 2019; J96.01 Acute respiratory failure with hypoxia; J96.02 Acute respiratory failure with hypercapnia; N17.0 Acute kidney failure with tubular necrosis; R65.21 Severe sepsis with septic shock; U07.1 COVID-19; Z68.41 Body mass index [BMI] 40.0-44.9, adult; J98.11 Atelectasis; Z99.11 Dependence on respirator [ventilator] status; Z66 Do not resuscitate; E66.01 Morbid (severe) obesity due to excess calories; I46.9 Cardiac arrest, cause unspecified; E86.0 Dehydration; E88.09 Other disorders of plasma-protein metabolism, not elsewhere classified; G83.9 Paralytic syndrome, unspecified; Z83.3 Family history of diabetes mellitus; D89.839 Cytokine release syndrome, grade unspecified; E55.9 Vitamin D deficiency, unspecified
CPT/HCPCS: 36415; 36569; 36600; 71045; 80048; 80053; 81001; 82040; 82306; 82728; 82805; 82962; 83605; 83615; 83735; 84100; 84478; 84484; 85025; 85379; 85610; 85730; 86141; 87040; 87070; 87081; 87086; 87205; 87426; 93005; 94002; 94003; 94640; 94660; 96365; 96366; 96375; G0378; J0131; J0171; J0696; J1100; J1815; J2250; J2543; J2704; J3490; J7060; P9047